=== PATIENT | male | born 1955 | race Caucasian/White ===

== ENCOUNTER → 2017-09-23 | Outpatient (CLI) | payer OTHER | LOC: BMCIMAGING 09:39 → EDSTATUS 09:40 | PROVIDERS: ATTEND Internal Medicine Rheumatology | DX: R91.8 Other nonspecific abnormal finding of lung field (principal); I77.6 Arteritis, unspecified ==

== ENCOUNTER → 2017-09-29 | Outpatient (CLI) | payer OTHER | LOC: FIMAGING 08:39 | PROVIDERS: ATTEND Internal Medicine Rheumatology | DX: J98.4 Other disorders of lung (principal) ==

== ENCOUNTER → 2018-06-23 | Outpatient (CLI) | payer OTHER ==
[~2018-06-23] MED LIST: GADOBUTROL 10 ML VIAL IVP ONE
== END ==
LOC: FIMAGING 07:42
PROVIDERS: ATTEND Otolaryngology
DX: H90.5 Unspecified sensorineural hearing loss (principal); H74.8X2 Other specified disorders of left middle ear and mastoid; J32.0 Chronic maxillary sinusitis
CPT/HCPCS: 82565-PO; A9585